=== PATIENT | female | born 1935 | race Asian ===

== ENCOUNTER 2022-11-26 21:39 | Inpatient (IN) | payer OTHER ==
[~2022-11-26] VITALS: Ht 160 cm; Wt 43.5 kg
[2022-11-26] MEDS ORDERED: cefTRIAXone 1,000 MG in DEXT 5% MINI-BAG PLUS 50 ML IV ONE (21:45)
[2022-11-26] MEDS ORDERED: cefTRIAXone 1,000 MG VIAL ONE (21:49)
[2022-11-26 22:10] VITALS: BP 168/83; PULSE 78; RESP 16; TEMP 97.5; O2SAT 95
[2022-11-26 22:15] VITALS: O2SAT 100
[2022-11-26 22:21] LABS: BASOPHILS % (AUTO) 0.6 % (0.0-2.0); EOSINOPHILS % (AUTO) 0.2 % (0.0-4.0); HEMATOCRIT 34.8 % (36-48); HEMOGLOBIN 11.6 g/dL (12.0-16.0); LYMPHOCYTES # (AUTO) 0.5 K/uL (2.5-16.5); LYMPHOCYTES % (AUTO) 10.9 % (20.5-51.1); MEAN CORPUSCULAR HEMOGLOBIN 34 pg (27-31); MEAN CORPUSCULAR HGB CONC 33 g/dL (33-37); MEAN CORPUSCULAR VOLUME 100.6 fL (80-94); MONOCYTES # (AUTO) 0.3 K/uL (0.8-1.0); MONOCYTES % (AUTO) 7.2 % (1.7-9.3); NEUTROPHILS # (AUTO) 3.7 K/uL (1.8-7.7); NEUTROPHILS % (AUTO) 81.1 % (42.2-75.2); PLATELET COUNT (AUTO) 169 K/uL (140-450); RED BLOOD CELL COUNT(AUTO) 3.46 MIL/uL (4.20-5.40); RED CELL DISTRIBUTION WIDTH 17.3 % (11.6-13.7); WHITE BLOOD COUNT (AUTO) 4.5 K/uL (4.8-10.8)
[2022-11-26 22:43] LABS: ALANINE AMINOTRANSFERASE 19 U/L (12-78); ALBUMIN 2.6 g/dL (3.4-5.0); ALKALINE PHOSPHATASE 122 U/L (50-136); ANION GAP 8.1 (8-16); ASPARTATE AMINOTRANSFERASE 69 U/L (15-37); CALCIUM 9.2 mg/dL (8.5-10.1); CARBON DIOXIDE 30.2 mmol/L (21-32); CHLORIDE 102 mmol/L (98-107); CREATININE 0.7 mg/dL (0.6-1.3); GLUCOSE 101 mg/dL (74-106); POTASSIUM 4.3 mmol/L (3.5-5.1); SODIUM SERUM 136 mmol/L (136-145); TOTAL BILIRUBIN 0.3 mg/dL (0.0-1.0); TOTAL PROTEIN, SERUM 6.9 g/dL (6.4-8.2); UREA NITROGEN, BLOOD 22 mg/dL (7-18)
[2022-11-26 22:44] LABS: APPEARANCE,URINE CLEAR (CLEAR); BILIRUBIN,URINE NEGATIVE (NEGATIVE); BLOOD, URINE NEGATIVE (NEGATIVE); COLOR,URINE YELLOW (YELLOW); LEUKOCYTE ESTERASE ,URINE NEGATIVE (NEGATIVE); NITRITE, URINE NEGATIVE (NEGATIVE); PROTEIN,URINE TRACE (NEGATIVE); UGLUCOSE NEGATIVE (NEGATIVE); UROBILINOGEN,URINE 0.2 EU/dL (0.2 - 1)
[2022-11-26 22:48] LABS: LACTIC ACID 0.8 mmol/L (0.4-2.0)
[2022-11-26] MEDS ORDERED: AZITHROMYCIN 500 MG in DEXTROSE 5% 250 ML IV ONE (22:55)
[2022-11-26] MEDS ORDERED: AZITHROMYCIN 500 MG INJ VIAL IV ONE (22:57)
[2022-11-27] VITALS (26 sets, daily range): BP systolic 72–135; BP diastolic 28–71; PULSE 70–98; RESP 15–20; TEMP 98–98.9; O2SAT 1–100
[2022-11-27 00:48] LABS: BLOOD GAS PH 7.327 (7.35-7.45)
[2022-11-27 00:49] LABS: BLOOD GAS PCO2 59.3 mmHg (35-45)
[2022-11-27 00:50] LABS: BLOOD GAS BASE EXCESS 3.2 mmol/L (-2.0-2.0); BLOOD GAS HCO3 30.4 mmol/L (22-26); BLOOD GAS PO2 24.2 mmHg (75-100)
[2022-11-27 00:51] LABS: BLOOD GAS O2 SAT% 38.8 % (92.0-98.5)
[2022-11-27 01:01] LABS: FLU A ANTIGEN negative (NEGATIVE); FLU B ANTIGEN NEGATIVE (NEGATIVE)
[2022-11-27] MEDS ORDERED: ONDANSETRON 4 MG/2 ML VIAL IM/IVP PRN (03:15)
[2022-11-27] MEDS ORDERED: POTASSIUM CHLORIDE 10 MEQ TABER PO PRN (03:15)
[2022-11-27] MEDS ORDERED: guaiFENesin DM 200/20 MG-10 ML 10 ML UDC PO PRN (03:15)
[2022-11-27] MEDS ORDERED: ZOLPIDEM 5 MG TAB PO PRN (03:15)
[2022-11-27] MEDS ORDERED: DOCUSATE SODIUM 100 MG GELCAP PO PRN (03:15)
[2022-11-27] MEDS ORDERED: HYDROcodone/APAP 7.5/325 MG 1 TAB PO PRN (03:15)
[2022-11-27] MEDS ORDERED: ACETAMINOPHEN 325 MG TAB PO PRN (03:15)
[2022-11-27 03:42] LABS: INR 1.33 (0.8-1.2); PROTHROMBIN TIME 13.8 secs (10.8-13.4)
[2022-11-27] MEDS: AZITHROMYCIN 500 MG in DEXTROSE 5% 250 ML IV SCH (08:50)
[2022-11-27] MEDS: FUROSEMIDE 40 MG/4 ML VIAL IVP SCH (08:51)
[2022-11-27] MEDS: PANTOPRAZOLE 40 MG TABEC PO SCH (08:51)
[2022-11-27] MEDS ORDERED: remdesivir COMMUNICATION ORDER 1 EA MISC MC PRN (11:05)
[2022-11-27] MEDS ORDERED: remdesivir CLINICAL MONITORING 1 EA MISC MC PRN (11:20)
[2022-11-27] MEDS ORDERED: REMDESIVIR. 200 MG in NACL 0.9% 100 ML IV SCH (12:00)
[2022-11-27] MEDS ORDERED: NACL 0.9% 500 ML IV SCH (12:50)
[2022-11-27] MEDS: HYDRAGUARD CREAM TP SCH (12:59)
[2022-11-27] MEDS: FOAM DRESSING TP SCH (12:59)
[2022-11-27] MEDS ORDERED: NOREPINEPHRINE 4 MG in DEXTROSE 5% 250 ML IV PRN (14:10)
[2022-11-27] MEDS ORDERED: NOREPINEPHRINE 4 MG/4 ML VIAL IV ONE (14:18)
[2022-11-28] VITALS (19 sets, daily range): BP systolic 91–120; BP diastolic 39–75; PULSE 83–124; RESP 14–22; TEMP 96.5–97.8; O2SAT 92–100
[2022-11-28] MEDS: HYDRAGUARD CREAM TP SCH ×3 (01:00→12:31)
[2022-11-28 05:04] LABS: HEMATOCRIT 39.1 % (36-48); MEAN CORPUSCULAR HEMOGLOBIN 33 pg (27-31); MEAN CORPUSCULAR HGB CONC 33 g/dL (33-37); MEAN CORPUSCULAR VOLUME 100.4 fL (80-94); PLATELET COUNT (AUTO) 177 K/uL (140-450); RED BLOOD CELL COUNT(AUTO) 3.89 MIL/uL (4.20-5.40); RED CELL DISTRIBUTION WIDTH 17.4 % (11.6-13.7); WHITE BLOOD COUNT (AUTO) 5.2 K/uL (4.8-10.8)
[2022-11-28 05:22] LABS: ALANINE AMINOTRANSFERASE 17 U/L (12-78); ALBUMIN 2.1 g/dL (3.4-5.0); ALKALINE PHOSPHATASE 223 U/L (50-136); ANION GAP 13.9 (8-16); ASPARTATE AMINOTRANSFERASE 64 U/L (15-37); CALCIUM 8.5 mg/dL (8.5-10.1); CARBON DIOXIDE 24.7 mmol/L (21-32); CHLORIDE 100 mmol/L (98-107); CREATININE 0.9 mg/dL (0.6-1.3); GLUCOSE 105 mg/dL (74-106); POTASSIUM 4.6 mmol/L (3.5-5.1); SODIUM SERUM 134 mmol/L (136-145); TOTAL BILIRUBIN 0.8 mg/dL (0.0-1.0); UREA NITROGEN, BLOOD 34 mg/dL (7-18)
[2022-11-28 05:23] LABS: ALBUMIN 2.2 g/dL (3.4-5.0); BILIRUBIN,DIRECT 0.4 mg/dL (0.0-0.3); TOTAL BILIRUBIN 0.7 mg/dL (0.0-1.0)
[2022-11-28 07:55] LABS: ANISOCYTOSIS 1+; BASOPHILS % (MANUAL) 0 % (0-2); BLASTS, MANUAL % 0 % (0-0); EOSINOPHILS % (MANUAL) 0 % (0-4); LYMPHOCYTES % (MANUAL) 2 % (20-46); METAMYELOCYTES % 0 % (0-0); MONOCYTES % (MANUAL) 0 % (5-12); MYELOCYTES % 0 % (0-0); OTHER CELLS,MANUAL % 0 (0-0); PLATELET ESTIMATE ADEQUATE; PROMYELOCYTES % 0 % (0-0); TEAR DROP CELLS 1+
[2022-11-28] MEDS ORDERED: DEXT 5% /NACL 0.9% 1,000 ML IV SCH (08:45)
[2022-11-28] MEDS: AZITHROMYCIN 500 MG in DEXTROSE 5% 250 ML IV SCH (08:52)
[2022-11-28] MEDS: FUROSEMIDE 40 MG/4 ML VIAL IVP SCH (08:53)
[2022-11-28] MEDS: PANTOPRAZOLE 40 MG TABEC PO SCH (08:54)
[2022-11-28] MEDS: REMDESIVIR. 100 MG in NACL 0.9% 100 ML IV SCH (12:10)
[2022-11-28] MEDS: FOAM DRESSING TP SCH (12:29)
[2022-11-28] MEDS: NOREPINEPHRINE 8 MG in DEXTROSE 5% 250 ML IV PRN (19:54)
[2022-11-29] VITALS (29 sets, daily range): BP systolic 95–134; BP diastolic 42–69; PULSE 87–119; RESP 12–21; TEMP 96.6–98.6; O2SAT 88–100
[2022-11-29 06:02] LABS: BILIRUBIN,DIRECT 0.4 mg/dL (0.0-0.3); TOTAL BILIRUBIN 0.7 mg/dL (0.0-1.0); TOTAL PROTEIN, SERUM 5.5 g/dL (6.4-8.2)
[2022-11-29 06:05] LABS: HEMATOCRIT 38.1 % (36-48); HEMOGLOBIN 12.8 g/dL (12.0-16.0); MEAN CORPUSCULAR HEMOGLOBIN 33 pg (27-31); MEAN CORPUSCULAR HGB CONC 34 g/dL (33-37); PLATELET COUNT (AUTO) 167 K/uL (140-450); RED BLOOD CELL COUNT(AUTO) 3.85 MIL/uL (4.20-5.40); RED CELL DISTRIBUTION WIDTH 18.3 % (11.6-13.7); WHITE BLOOD COUNT (AUTO) 10.3 K/uL (4.8-10.8)
[2022-11-29 06:27] LABS: ALANINE AMINOTRANSFERASE 18 U/L (12-78); ALKALINE PHOSPHATASE 193 U/L (50-136); ANION GAP 11.1 (8-16); ASPARTATE AMINOTRANSFERASE 79 U/L (15-37); CALCIUM 8.5 mg/dL (8.5-10.1); CHLORIDE 100 mmol/L (98-107); CREATININE 0.8 mg/dL (0.6-1.3); GLUCOSE 102 mg/dL (74-106); POTASSIUM 4.1 mmol/L (3.5-5.1); SODIUM SERUM 135 mmol/L (136-145); TOTAL BILIRUBIN 0.7 mg/dL (0.0-1.0); TOTAL PROTEIN, SERUM 5.5 g/dL (6.4-8.2); UREA NITROGEN, BLOOD 43 mg/dL (7-18)
[2022-11-29 07:59] LABS: ANISOCYTOSIS 1+; LYMPHOCYTES % (MANUAL) 2 % (20-46); MONOCYTES % (MANUAL) 1 % (5-12); OVALOCYTES 1+; PLATELET ESTIMATE ADEQUATE
[2022-11-29] MEDS: PANTOPRAZOLE 40 MG TABEC PO SCH (09:00)
[2022-11-29] MEDS: FUROSEMIDE 40 MG/4 ML VIAL IVP SCH (09:39)
[2022-11-29] MEDS: AZITHROMYCIN 500 MG in DEXTROSE 5% 250 ML IV SCH (09:40)
[2022-11-29] MEDS: NOREPINEPHRINE 8 MG in DEXTROSE 5% 250 ML IV PRN (10:22)
[2022-11-29] MEDS: REMDESIVIR. 100 MG in NACL 0.9% 100 ML IV SCH (11:34)
[2022-11-29] MEDS: FOAM DRESSING TP SCH (12:47)
[2022-11-29] MEDS: HYDRAGUARD CREAM TP SCH ×2 (12:49→13:00)
[2022-11-29] MEDS: ALBUTEROL SULFATE/IPRATROPIU 3 ML SOL IH PRN (16:37)
[2022-11-30] VITALS (30 sets, daily range): BP systolic 68–142; BP diastolic 37–72; PULSE 80–146; RESP 13–20; TEMP 96–98.1; O2SAT 77–100
[2022-11-30] MEDS: NOREPINEPHRINE 8 MG in DEXTROSE 5% 250 ML IV PRN ×2 (01:12→22:31)
[2022-11-30 05:07] LABS: BASOPHILS % (AUTO) 0.3 % (0.0-2.0); HEMATOCRIT 37.9 % (36-48); HEMOGLOBIN 12.8 g/dL (12.0-16.0); LYMPHOCYTES # (AUTO) 0.3 K/uL (2.5-16.5); LYMPHOCYTES % (AUTO) 3.1 % (20.5-51.1); MEAN CORPUSCULAR HEMOGLOBIN 34 pg (27-31); MEAN CORPUSCULAR HGB CONC 34 g/dL (33-37); MEAN CORPUSCULAR VOLUME 99.3 fL (80-94); MONOCYTES # (AUTO) 0.3 K/uL (0.8-1.0); MONOCYTES % (AUTO) 2.8 % (1.7-9.3); NEUTROPHILS # (AUTO) 9.4 K/uL (1.8-7.7); NEUTROPHILS % (AUTO) 93.8 % (42.2-75.2); PLATELET COUNT (AUTO) 158 K/uL (140-450); RED BLOOD CELL COUNT(AUTO) 3.81 MIL/uL (4.20-5.40); WHITE BLOOD COUNT (AUTO) 10.1 K/uL (4.8-10.8)
[2022-11-30 05:42] LABS: ALANINE AMINOTRANSFERASE 20 U/L (12-78); ALKALINE PHOSPHATASE 193 U/L (50-136); ANION GAP 10.4 (8-16); ASPARTATE AMINOTRANSFERASE 81 U/L (15-37); CALCIUM 8.7 mg/dL (8.5-10.1); CARBON DIOXIDE 31.4 mmol/L (21-32); CHLORIDE 100 mmol/L (98-107); CREATININE 0.8 mg/dL (0.6-1.3); GLUCOSE 123 mg/dL (74-106); POTASSIUM 3.8 mmol/L (3.5-5.1); SODIUM SERUM 138 mmol/L (136-145); TOTAL BILIRUBIN 0.6 mg/dL (0.0-1.0); TOTAL PROTEIN, SERUM 5.6 g/dL (6.4-8.2); UREA NITROGEN, BLOOD 47 mg/dL (7-18)
[2022-11-30] MEDS: AZITHROMYCIN 500 MG in DEXTROSE 5% 250 ML IV SCH (08:32)
[2022-11-30] MEDS: DEXAMETHASONE 4 MG/ML VIAL IVP SCH (08:33)
[2022-11-30] MEDS: FUROSEMIDE 40 MG/4 ML VIAL IVP SCH (08:34)
[2022-11-30] MEDS: PANTOPRAZOLE 40 MG INJ VIAL IVP SCH (08:34)
[2022-11-30 08:50] LABS: C-REACTIVE PROTEIN QUANT 50.1 mg/dL (0.0-0.9)
[2022-11-30] MEDS ORDERED: ENOXAPARIN 40 MG/0.4 ML SYR SUBQ SCH (09:00)
[2022-11-30] MEDS: REMDESIVIR. 100 MG in NACL 0.9% 100 ML IV SCH (11:52)
[2022-11-30] MEDS: HYDRAGUARD CREAM TP SCH (13:00)
[2022-11-30] MEDS: FOAM DRESSING TP SCH (13:00)
[2022-11-30] MEDS ORDERED: PPN PER PHARMACY MC PRN (15:10)
[2022-11-30] MEDS ORDERED: DIGOXIN 0.25 MG/ML AMP IV ONE ×2 (16:45→22:30)
[2022-11-30] MEDS: DEXT 5% /NACL 0.9% 1,000 ML IV SCH (17:55)
[2022-11-30] MEDS: ALBUTEROL SULFATE/IPRATROPIU 3 ML SOL IH PRN (19:20)
[2022-12-01] VITALS (41 sets, daily range): BP systolic 80–164; BP diastolic 31–84; PULSE 46–97; RESP 12–19; TEMP 96.3–98; O2SAT 89–100
[2022-12-01] MEDS: HYDRAGUARD CREAM TP SCH ×2 (00:29→13:00)
[2022-12-01] MEDS ORDERED: DIGOXIN 0.25 MG/ML AMP IV ONE ×2 (04:30→18:00)
[2022-12-01 05:38] LABS: BASOPHILS % (AUTO) 0.1 % (0.0-2.0); EOSINOPHILS % (AUTO) 0.1 % (0.0-4.0); HEMATOCRIT 37.9 % (36-48); HEMOGLOBIN 12.7 g/dL (12.0-16.0); LYMPHOCYTES # (AUTO) 0.3 K/uL (2.5-16.5); MEAN CORPUSCULAR HEMOGLOBIN 33 pg (27-31); MEAN CORPUSCULAR HGB CONC 34 g/dL (33-37); MONOCYTES # (AUTO) 0.3 K/uL (0.8-1.0); NEUTROPHILS # (AUTO) 7.9 K/uL (1.8-7.7); NEUTROPHILS % (AUTO) 93.8 % (42.2-75.2); PLATELET COUNT (AUTO) 162 K/uL (140-450); RED BLOOD CELL COUNT(AUTO) 3.83 MIL/uL (4.20-5.40); RED CELL DISTRIBUTION WIDTH 17.5 % (11.6-13.7); WHITE BLOOD COUNT (AUTO) 8.4 K/uL (4.8-10.8)
[2022-12-01 06:03] LABS: ALANINE AMINOTRANSFERASE 26 U/L (12-78); ALBUMIN 2.1 g/dL (3.4-5.0); ALKALINE PHOSPHATASE 201 U/L (50-136); ASPARTATE AMINOTRANSFERASE 96 U/L (15-37); BILIRUBIN,DIRECT 0.3 mg/dL (0.0-0.3); CALCIUM 8.6 mg/dL (8.5-10.1); CARBON DIOXIDE 32.6 mmol/L (21-32); CHLORIDE 98 mmol/L (98-107); GLUCOSE 239 mg/dL (74-106); POTASSIUM 3.6 mmol/L (3.5-5.1); SODIUM SERUM 136 mmol/L (136-145); TOTAL BILIRUBIN 0.6 mg/dL (0.0-1.0); TOTAL PROTEIN, SERUM 5.7 g/dL (6.4-8.2); UREA NITROGEN, BLOOD 53 mg/dL (7-18)
[2022-12-01 07:33] LABS: MAGNESIUM 1.5 mg/dL (1.8-2.4); PHOSPHORUS 3.5 mg/dL (2.5-4.9)
[2022-12-01] MEDS: AZITHROMYCIN 500 MG in DEXTROSE 5% 250 ML IV SCH (08:08)
[2022-12-01] MEDS: PANTOPRAZOLE 40 MG INJ VIAL IVP SCH (08:09)
[2022-12-01] MEDS: DEXAMETHASONE 4 MG/ML VIAL IVP SCH (08:09)
[2022-12-01] MEDS ORDERED: MAG SULF 2000 MG/WATER PREMIX 50 ML IV SCH (08:40)
[2022-12-01] MEDS ORDERED: DEXMEDETOMIDINE HCL 400 MCG in NACL 0.9% 96 ML IV PRN ×2 (09:45→10:05)
[2022-12-01 11:04] LABS: BLOOD GAS PCO2 45.4 mmHg (35-45); BLOOD GAS PH 7.432 (7.35-7.45)
[2022-12-01 11:05] LABS: BLOOD GAS BASE EXCESS 4.7 mmol/L (-2.0-2.0); BLOOD GAS HCO3 29.6 mmol/L (22-26)
[2022-12-01 11:06] LABS: BLOOD GAS O2 SAT% 99.1 % (92.0-98.5)
[2022-12-01] MEDS: DEXT 5% /NACL 0.9% 1,000 ML IV SCH (11:24)
[2022-12-01] MEDS: REMDESIVIR. 100 MG in NACL 0.9% 100 ML IV SCH (11:50)
[2022-12-01] MEDS ORDERED: TPN PER PHARMACY MC PRN (12:05)
[2022-12-01] MEDS: FOAM DRESSING TP SCH (13:00)
[2022-12-01] MEDS: DEXMEDETOMIDINE HCL 400 MCG in NACL 0.9% 96 ML IV PRN (13:19)
[2022-12-01] MEDS: BLOOD GLUCOSE MONITORING 1 DEV DEV MC SCH (18:43)
[2022-12-01] MEDS ORDERED: DEXTROSE IV SCH ×3 (20:00)
[2022-12-01] MEDS ORDERED: MULTIVITAMIN IV SCH ×3 (20:00)
[2022-12-01] MEDS ORDERED: AMINO ACIDS 8.5% IV SCH ×3 (20:00)
[2022-12-02] VITALS (29 sets, daily range): BP systolic 103–154; BP diastolic 44–79; PULSE 47–92; RESP 12–21; TEMP 96.3–97.1; O2SAT 85–100
[2022-12-02] MEDS: BLOOD GLUCOSE MONITORING 1 DEV DEV MC SCH ×4 (00:33→18:40)
[2022-12-02] MEDS: HYDRAGUARD CREAM TP SCH ×2 (00:34→13:41)
[2022-12-02 05:59] LABS: BASOPHILS % (AUTO) 0.1 % (0.0-2.0); EOSINOPHILS % (AUTO) 0.1 % (0.0-4.0); HEMATOCRIT 35.3 % (36-48); HEMOGLOBIN 11.8 g/dL (12.0-16.0); LYMPHOCYTES # (AUTO) 0.2 K/uL (2.5-16.5); LYMPHOCYTES % (AUTO) 3.6 % (20.5-51.1); MEAN CORPUSCULAR HEMOGLOBIN 33 pg (27-31); MEAN CORPUSCULAR HGB CONC 33 g/dL (33-37); MONOCYTES # (AUTO) 0.3 K/uL (0.8-1.0); MONOCYTES % (AUTO) 4.6 % (1.7-9.3); NEUTROPHILS # (AUTO) 5.8 K/uL (1.8-7.7); NEUTROPHILS % (AUTO) 91.6 % (42.2-75.2); PLATELET COUNT (AUTO) 129 K/uL (140-450); RED BLOOD CELL COUNT(AUTO) 3.53 MIL/uL (4.20-5.40); RED CELL DISTRIBUTION WIDTH 17.6 % (11.6-13.7); WHITE BLOOD COUNT (AUTO) 6.4 K/uL (4.8-10.8)
[2022-12-02 06:23] LABS: ALANINE AMINOTRANSFERASE 29 U/L (12-78); ALBUMIN 1.7 g/dL (3.4-5.0); ALKALINE PHOSPHATASE 166 U/L (50-136); ANION GAP 4.7 (8-16); ASPARTATE AMINOTRANSFERASE 83 U/L (15-37); CALCIUM 8.5 mg/dL (8.5-10.1); CHLORIDE 102 mmol/L (98-107); CREATININE 0.7 mg/dL (0.6-1.3); GLUCOSE 200 mg/dL (74-106); POTASSIUM 3.7 mmol/L (3.5-5.1); SODIUM SERUM 137 mmol/L (136-145); TOTAL BILIRUBIN 0.3 mg/dL (0.0-1.0); TOTAL PROTEIN, SERUM 5.1 g/dL (6.4-8.2); UREA NITROGEN, BLOOD 47 mg/dL (7-18)
[2022-12-02 06:25] LABS: CHOL/HDL RATIO 4.7 (1-4.5)
[2022-12-02] MEDS: PANTOPRAZOLE 40 MG INJ VIAL IVP SCH ×2 (07:58→20:18)
[2022-12-02] MEDS: DEXAMETHASONE 4 MG/ML VIAL IVP SCH (07:58)
[2022-12-02] MEDS: INSULIN LISPRO SLIDING SCALE 100 UNITS/ML VIAL SUBQ PRN (12:01)
[2022-12-02] MEDS: FOAM DRESSING TP SCH (13:41)
[2022-12-02] MEDS: FUROSEMIDE 40 MG/4 ML VIAL IVP SCH (14:49)
[2022-12-02] MEDS: NOREPINEPHRINE 8 MG in DEXTROSE 5% 250 ML IV PRN (15:32)
[2022-12-02] MEDS ORDERED: MULTIVITAMIN-12 10 ML in DEXTROSE 50% 545 ML, AMINO ACIDS 8.5% 545 ML, FAT EMULSION 20%... IV SCH ×4 (20:00)
[2022-12-02] MEDS: CEFEPIME 1,000 MG in DEXTROSE 5% 50 ML IV SCH (20:18)
[2022-12-03] VITALS (32 sets, daily range): BP systolic 92–139; BP diastolic 36–75; PULSE 65–104; RESP 13–21; TEMP 96.5–98.6; O2SAT 82–100
[2022-12-03] MEDS: BLOOD GLUCOSE MONITORING 1 DEV DEV MC SCH ×4 (00:52→18:17)
[2022-12-03] MEDS: HYDRAGUARD CREAM TP SCH ×2 (00:58→13:49)
[2022-12-03 05:29] LABS: BASOPHILS % (AUTO) 0.1 % (0.0-2.0); HEMATOCRIT 35.2 % (36-48); HEMOGLOBIN 11.8 g/dL (12.0-16.0); LYMPHOCYTES # (AUTO) 0.2 K/uL (2.5-16.5); LYMPHOCYTES % (AUTO) 2.6 % (20.5-51.1); MEAN CORPUSCULAR HEMOGLOBIN 33 pg (27-31); MEAN CORPUSCULAR HGB CONC 34 g/dL (33-37); MEAN CORPUSCULAR VOLUME 99.1 fL (80-94); MONOCYTES # (AUTO) 0.2 K/uL (0.8-1.0); MONOCYTES % (AUTO) 2.7 % (1.7-9.3); NEUTROPHILS # (AUTO) 7.7 K/uL (1.8-7.7); NEUTROPHILS % (AUTO) 94.6 % (42.2-75.2); PLATELET COUNT (AUTO) 109 K/uL (140-450); RED BLOOD CELL COUNT(AUTO) 3.55 MIL/uL (4.20-5.40); RED CELL DISTRIBUTION WIDTH 17.8 % (11.6-13.7); WHITE BLOOD COUNT (AUTO) 8.1 K/uL (4.8-10.8)
[2022-12-03 05:45] LABS: ALANINE AMINOTRANSFERASE 28 U/L (12-78); ALBUMIN 1.7 g/dL (3.4-5.0); ALKALINE PHOSPHATASE 150 U/L (50-136); ASPARTATE AMINOTRANSFERASE 82 U/L (15-37); CALCIUM 8.1 mg/dL (8.5-10.1); CARBON DIOXIDE 34.5 mmol/L (21-32); CHLORIDE 99 mmol/L (98-107); CREATININE 0.6 mg/dL (0.6-1.3); POTASSIUM 4.5 mmol/L (3.5-5.1); SODIUM SERUM 133 mmol/L (136-145); TOTAL BILIRUBIN 0.3 mg/dL (0.0-1.0); TOTAL PROTEIN, SERUM 4.9 g/dL (6.4-8.2); UREA NITROGEN, BLOOD 46 mg/dL (7-18)
[2022-12-03 05:51] LABS: GLUCOSE 454 mg/dL (74-106)
[2022-12-03 05:54] LABS: MAGNESIUM 2.1 mg/dL (1.8-2.4); PHOSPHORUS 4.1 mg/dL (2.5-4.9)
[2022-12-03] MEDS: CEFEPIME 1,000 MG in DEXTROSE 5% 50 ML IV SCH ×2 (09:22→20:37)
[2022-12-03] MEDS: PANTOPRAZOLE 40 MG INJ VIAL IVP SCH ×2 (09:22→20:37)
[2022-12-03] MEDS: FUROSEMIDE 40 MG/4 ML VIAL IVP SCH (09:23)
[2022-12-03] MEDS: FOAM DRESSING TP SCH (13:48)
[2022-12-03] MEDS ORDERED: DEXTROSE IV SCH ×4 (20:00)
[2022-12-03] MEDS ORDERED: MULTIVITAMIN IV SCH ×4 (20:00)
[2022-12-03] MEDS ORDERED: AMINO ACIDS IV SCH ×4 (20:00)
[2022-12-03] MEDS ORDERED: [UNRECOGNIZED DRUG - OTHER] IV SCH ×4 (20:00)
[2022-12-04] VITALS (30 sets, daily range): BP systolic 90–136; BP diastolic 38–84; PULSE 66–117; RESP 13–28; TEMP 97.8–98.8; O2SAT 82–100
[2022-12-04] MEDS: BLOOD GLUCOSE MONITORING 1 DEV DEV MC SCH ×4 (00:33→18:47)
[2022-12-04] MEDS: HYDRAGUARD CREAM TP SCH ×2 (00:33→13:00)
[2022-12-04 05:30] LABS: HEMATOCRIT 32.7 % (36-48); LYMPHOCYTES # (AUTO) 0.2 K/uL (2.5-16.5); LYMPHOCYTES % (AUTO) 2.3 % (20.5-51.1); MEAN CORPUSCULAR HEMOGLOBIN 33 pg (27-31); MEAN CORPUSCULAR HGB CONC 34 g/dL (33-37); MEAN CORPUSCULAR VOLUME 99.2 fL (80-94); MONOCYTES # (AUTO) 0.3 K/uL (0.8-1.0); MONOCYTES % (AUTO) 3.6 % (1.7-9.3); NEUTROPHILS # (AUTO) 8.7 K/uL (1.8-7.7); NEUTROPHILS % (AUTO) 94.1 % (42.2-75.2); PLATELET COUNT (AUTO) 86 K/uL (140-450); RED BLOOD CELL COUNT(AUTO) 3.29 MIL/uL (4.20-5.40); RED CELL DISTRIBUTION WIDTH 17.4 % (11.6-13.7); WHITE BLOOD COUNT (AUTO) 9.3 K/uL (4.8-10.8)
[2022-12-04 06:04] LABS: PHOSPHORUS 2.4 mg/dL (2.5-4.9)
[2022-12-04 06:32] LABS: ALANINE AMINOTRANSFERASE 27 U/L (12-78); ALBUMIN 1.7 g/dL (3.4-5.0); ALKALINE PHOSPHATASE 140 U/L (50-136); ANION GAP 5.3 (8-16); ASPARTATE AMINOTRANSFERASE 72 U/L (15-37); CALCIUM 8.6 mg/dL (8.5-10.1); CARBON DIOXIDE 36.2 mmol/L (21-32); CHLORIDE 102 mmol/L (98-107); CREATININE 0.7 mg/dL (0.6-1.3); GLUCOSE 163 mg/dL (74-106); POTASSIUM 3.5 mmol/L (3.5-5.1); SODIUM SERUM 140 mmol/L (136-145); TOTAL BILIRUBIN 0.4 mg/dL (0.0-1.0); UREA NITROGEN, BLOOD 58 mg/dL (7-18)
[2022-12-04] MEDS: FUROSEMIDE 40 MG/4 ML VIAL IVP SCH (09:14)
[2022-12-04] MEDS: CEFEPIME 1,000 MG in DEXTROSE 5% 50 ML IV SCH ×2 (09:14→20:44)
[2022-12-04] MEDS: PANTOPRAZOLE 40 MG INJ VIAL IVP SCH ×2 (09:14→20:44)
[2022-12-04] MEDS: DEXMEDETOMIDINE HCL 400 MCG in NACL 0.9% 96 ML IV PRN (10:04)
[2022-12-04] MEDS: INSULIN LISPRO SLIDING SCALE 100 UNITS/ML VIAL SUBQ PRN (11:45)
[2022-12-04] MEDS: FOAM DRESSING TP SCH (13:00)
[2022-12-04] MEDS: DEXTROSE IV SCH ×4 (20:46)
[2022-12-04] MEDS: [UNRECOGNIZED DRUG - OTHER] IV SCH ×4 (20:46)
[2022-12-04] MEDS: AMINO ACIDS IV SCH ×4 (20:46)
[2022-12-04] MEDS: MULTIVITAMIN IV SCH ×4 (20:46)
[2022-12-05] VITALS (31 sets, daily range): BP systolic 90–131; BP diastolic 35–81; PULSE 80–129; RESP 14–25; TEMP 97.1–98.8; O2SAT 90–100
[2022-12-05] MEDS: BLOOD GLUCOSE MONITORING 1 DEV DEV MC SCH ×4 (00:16→17:32)
[2022-12-05] MEDS: HYDRAGUARD CREAM TP SCH ×2 (01:50→13:49)
[2022-12-05 05:35] LABS: BASOPHILS % (AUTO) 0.1 % (0.0-2.0); HEMATOCRIT 28.3 % (36-48); HEMOGLOBIN 9.5 g/dL (12.0-16.0); LYMPHOCYTES # (AUTO) 0.3 K/uL (2.5-16.5); LYMPHOCYTES % (AUTO) 4.1 % (20.5-51.1); MEAN CORPUSCULAR HEMOGLOBIN 33 pg (27-31); MEAN CORPUSCULAR HGB CONC 34 g/dL (33-37); MEAN CORPUSCULAR VOLUME 99.2 fL (80-94); MONOCYTES # (AUTO) 0.3 K/uL (0.8-1.0); MONOCYTES % (AUTO) 4.2 % (1.7-9.3); NEUTROPHILS # (AUTO) 6.8 K/uL (1.8-7.7); PLATELET COUNT (AUTO) 78 K/uL (140-450); RED BLOOD CELL COUNT(AUTO) 2.86 MIL/uL (4.20-5.40); RED CELL DISTRIBUTION WIDTH 17.5 % (11.6-13.7); WHITE BLOOD COUNT (AUTO) 7.4 K/uL (4.8-10.8)
[2022-12-05 05:45] LABS: PHOSPHORUS 1.9 mg/dL (2.5-4.9)
[2022-12-05 05:48] LABS: ALANINE AMINOTRANSFERASE 26 U/L (12-78); ALBUMIN 1.6 g/dL (3.4-5.0); ALKALINE PHOSPHATASE 127 U/L (50-136); ANION GAP 3.8 (8-16); ASPARTATE AMINOTRANSFERASE 66 U/L (15-37); CALCIUM 8.3 mg/dL (8.5-10.1); CARBON DIOXIDE 36.4 mmol/L (21-32); CHLORIDE 107 mmol/L (98-107); CREATININE 0.7 mg/dL (0.6-1.3); GLUCOSE 208 mg/dL (74-106); POTASSIUM 3.2 mmol/L (3.5-5.1); SODIUM SERUM 144 mmol/L (136-145); TOTAL BILIRUBIN 0.5 mg/dL (0.0-1.0); TOTAL PROTEIN, SERUM 4.8 g/dL (6.4-8.2); UREA NITROGEN, BLOOD 59 mg/dL (7-18)
[2022-12-05 06:31] LABS: NEUTROPHILS % (AUTO) 91.6 % (42.2-75.2)
[2022-12-05 07:24] LABS: BLOOD GAS PCO2 45.2 mmHg (35-45); BLOOD GAS PH 7.474 (7.35-7.45)
[2022-12-05 07:25] LABS: BLOOD GAS O2 SAT% 95.2 % (92.0-98.5)
[2022-12-05 07:26] LABS: BLOOD GAS HCO3 32.5 mmol/L (22-26)
[2022-12-05] MEDS ORDERED: KCL 20 MEQ IN 100 mL PREMIX 200 ML IV SCH (08:01)
[2022-12-05] MEDS: FUROSEMIDE 20 MG/2 ML VIAL IVP SCH ×2 (08:33→15:03)
[2022-12-05] MEDS: PANTOPRAZOLE 40 MG INJ VIAL IVP SCH ×2 (08:33→20:05)
[2022-12-05] MEDS: FUROSEMIDE 40 MG/4 ML VIAL IVP SCH ×2 (08:34→09:00)
[2022-12-05] MEDS: CEFEPIME 1,000 MG in DEXTROSE 5% 50 ML IV SCH ×2 (08:34→21:04)
[2022-12-05] MEDS ORDERED: POTASSIUM PHOSPHATE 15 MM in NACL 0.9% 250 ML IV SCH (09:00)
[2022-12-05 11:02] LABS: INR 1.29 (0.8-1.2); PARTIAL THROMBOPLASTIN TIME 30.2 secs (22-35.6); PROTHROMBIN TIME 13.3 secs (10.8-13.4)
[2022-12-05] MEDS: FOAM DRESSING TP SCH (13:49)
[2022-12-05] MEDS: INSULIN LISPRO SLIDING SCALE 100 UNITS/ML VIAL SUBQ PRN (17:33)
[2022-12-05] MEDS: DEXMEDETOMIDINE HCL 400 MCG in NACL 0.9% 96 ML IV PRN (18:12)
[2022-12-05] MEDS: [UNRECOGNIZED DRUG - OTHER] IV SCH ×4 (20:05)
[2022-12-05] MEDS: AMINO ACIDS IV SCH ×4 (20:05)
[2022-12-05] MEDS: MULTIVITAMIN IV SCH ×4 (20:05)
[2022-12-05] MEDS: DEXTROSE IV SCH ×4 (20:05)
[2022-12-06] VITALS (29 sets, daily range): BP systolic 98–164; BP diastolic 52–111; PULSE 72–111; RESP 14–27; TEMP 96.2–98.4; O2SAT 94–100
[2022-12-06] MEDS ORDERED: DEXTROSE 50% 50 ML SYR IVP ONE (00:28)
[2022-12-06] MEDS: BLOOD GLUCOSE MONITORING 1 DEV DEV MC SCH ×4 (00:36→18:03)
[2022-12-06] MEDS: HYDRAGUARD CREAM TP SCH ×2 (00:36→13:50)
[2022-12-06] MEDS: DEXTROSE 50% 50 ML SYR IVP PRN ×2 (00:45→21:21)
[2022-12-06 05:15] LABS: BASOPHILS % (AUTO) 0.1 % (0.0-2.0); HEMATOCRIT 33.3 % (36-48); HEMOGLOBIN 11.4 g/dL (12.0-16.0); LYMPHOCYTES # (AUTO) 0.3 K/uL (2.5-16.5); LYMPHOCYTES % (AUTO) 4.7 % (20.5-51.1); MEAN CORPUSCULAR HEMOGLOBIN 32 pg (27-31); MEAN CORPUSCULAR HGB CONC 34 g/dL (33-37); MEAN CORPUSCULAR VOLUME 93.5 fL (80-94); MONOCYTES # (AUTO) 0.3 K/uL (0.8-1.0); MONOCYTES % (AUTO) 5.2 % (1.7-9.3); NEUTROPHILS # (AUTO) 5.1 K/uL (1.8-7.7); PLATELET COUNT (AUTO) 106 K/uL (140-450); RED BLOOD CELL COUNT(AUTO) 3.56 MIL/uL (4.20-5.40); RED CELL DISTRIBUTION WIDTH 19.2 % (11.6-13.7); WHITE BLOOD COUNT (AUTO) 5.7 K/uL (4.8-10.8)
[2022-12-06 05:23] LABS: MAGNESIUM 1.8 mg/dL (1.8-2.4); PHOSPHORUS 2.9 mg/dL (2.5-4.9)
[2022-12-06 05:26] LABS: ALANINE AMINOTRANSFERASE 26 U/L (12-78); ALBUMIN 1.6 g/dL (3.4-5.0); ALKALINE PHOSPHATASE 119 U/L (50-136); ANION GAP 5.3 (8-16); ASPARTATE AMINOTRANSFERASE 67 U/L (15-37); CALCIUM 8.5 mg/dL (8.5-10.1); CARBON DIOXIDE 37.5 mmol/L (21-32); CHLORIDE 108 mmol/L (98-107); CREATININE 0.6 mg/dL (0.6-1.3); GLUCOSE 132 mg/dL (74-106); SODIUM SERUM 148 mmol/L (136-145); TOTAL BILIRUBIN 0.6 mg/dL (0.0-1.0); TOTAL PROTEIN, SERUM 5.1 g/dL (6.4-8.2); UREA NITROGEN, BLOOD 55 mg/dL (7-18)
[2022-12-06 05:29] LABS: POTASSIUM 2.8 mmol/L (3.5-5.1)
[2022-12-06] MEDS ORDERED: KCL IV ONE (05:40)
[2022-12-06] MEDS: CEFEPIME 1,000 MG in DEXTROSE 5% 50 ML IV SCH ×2 (08:23→20:24)
[2022-12-06] MEDS: PANTOPRAZOLE 40 MG INJ VIAL IVP SCH ×2 (08:24→20:24)
[2022-12-06] MEDS: FUROSEMIDE 20 MG/2 ML VIAL IVP SCH (08:24)
[2022-12-06] MEDS: FOAM DRESSING TP SCH (13:49)
[2022-12-06] MEDS: AMINO ACIDS IV SCH ×4 (20:36)
[2022-12-06] MEDS: MULTIVITAMIN IV SCH ×4 (20:36)
[2022-12-06] MEDS: DEXTROSE IV SCH ×4 (20:36)
[2022-12-06] MEDS: [UNRECOGNIZED DRUG - OTHER] IV SCH ×4 (20:36)
[2022-12-07] VITALS (31 sets, daily range): BP systolic 125–169; BP diastolic 66–102; PULSE 86–125; RESP 16–36; TEMP 96–98.9; O2SAT 94–99
[2022-12-07] MEDS: BLOOD GLUCOSE MONITORING 1 DEV DEV MC SCH ×4 (00:10→18:13)
[2022-12-07] MEDS: HYDRAGUARD CREAM TP SCH ×2 (00:11→13:00)
[2022-12-07 05:30] LABS: EOSINOPHILS % (AUTO) 0.1 % (0.0-4.0); HEMOGLOBIN 9.5 g/dL (12.0-16.0); LYMPHOCYTES # (AUTO) 0.3 K/uL (2.5-16.5); LYMPHOCYTES % (AUTO) 4.9 % (20.5-51.1); MEAN CORPUSCULAR HEMOGLOBIN 32 pg (27-31); MEAN CORPUSCULAR HGB CONC 34 g/dL (33-37); MEAN CORPUSCULAR VOLUME 94.6 fL (80-94); MONOCYTES # (AUTO) 0.4 K/uL (0.8-1.0); MONOCYTES % (AUTO) 6.7 % (1.7-9.3); NEUTROPHILS # (AUTO) 5.6 K/uL (1.8-7.7); NEUTROPHILS % (AUTO) 88.3 % (42.2-75.2); PLATELET COUNT (AUTO) 108 K/uL (140-450); RED BLOOD CELL COUNT(AUTO) 2.95 MIL/uL (4.20-5.40); RED CELL DISTRIBUTION WIDTH 18.7 % (11.6-13.7); WHITE BLOOD COUNT (AUTO) 6.3 K/uL (4.8-10.8)
[2022-12-07 05:59] LABS: ALANINE AMINOTRANSFERASE 37 U/L (12-78); ALBUMIN 1.7 g/dL (3.4-5.0); ALKALINE PHOSPHATASE 148 U/L (50-136); ANION GAP 3.9 (8-16); ASPARTATE AMINOTRANSFERASE 79 U/L (15-37); CALCIUM 8.5 mg/dL (8.5-10.1); CARBON DIOXIDE 37.9 mmol/L (21-32); CHLORIDE 110 mmol/L (98-107); CREATININE 0.5 mg/dL (0.6-1.3); GLUCOSE 109 mg/dL (74-106); MAGNESIUM 1.9 mg/dL (1.8-2.4); PHOSPHORUS 1.9 mg/dL (2.5-4.9); POTASSIUM 3.8 mmol/L (3.5-5.1); SODIUM SERUM 148 mmol/L (136-145); TOTAL BILIRUBIN 0.7 mg/dL (0.0-1.0); TOTAL PROTEIN, SERUM 5.4 g/dL (6.4-8.2); UREA NITROGEN, BLOOD 42 mg/dL (7-18)
[2022-12-07] MEDS: FUROSEMIDE 20 MG/2 ML VIAL IVP SCH (09:54)
[2022-12-07] MEDS: PANTOPRAZOLE 40 MG INJ VIAL IVP SCH ×2 (09:54→20:18)
[2022-12-07] MEDS: FOAM DRESSING TP SCH (13:00)
[2022-12-07] MEDS: DEXTROSE IV SCH ×4 (20:19)
[2022-12-07] MEDS: [UNRECOGNIZED DRUG - OTHER] IV SCH ×4 (20:19)
[2022-12-07] MEDS: MULTIVITAMIN IV SCH ×4 (20:19)
[2022-12-07] MEDS: AMINO ACIDS IV SCH ×4 (20:19)
[2022-12-08] VITALS (29 sets, daily range): BP systolic 108–165; BP diastolic 53–87; PULSE 72–113; RESP 17–34; TEMP 97.2–98.3; O2SAT 95–99
[2022-12-08] MEDS: BLOOD GLUCOSE MONITORING 1 DEV DEV MC SCH ×4 (00:45→17:48)
[2022-12-08] MEDS: HYDRAGUARD CREAM TP SCH ×2 (01:00→13:06)
[2022-12-08 05:38] LABS: BASOPHILS % (AUTO) 0.1 % (0.0-2.0); EOSINOPHILS % (AUTO) 0.1 % (0.0-4.0); HEMATOCRIT 27.8 % (36-48); HEMOGLOBIN 9.2 g/dL (12.0-16.0); LYMPHOCYTES # (AUTO) 0.3 K/uL (2.5-16.5); LYMPHOCYTES % (AUTO) 5.4 % (20.5-51.1); MEAN CORPUSCULAR HEMOGLOBIN 32 pg (27-31); MEAN CORPUSCULAR HGB CONC 33 g/dL (33-37); MEAN CORPUSCULAR VOLUME 96.1 fL (80-94); MONOCYTES # (AUTO) 0.4 K/uL (0.8-1.0); MONOCYTES % (AUTO) 6.2 % (1.7-9.3); NEUTROPHILS % (AUTO) 88.2 % (42.2-75.2); PLATELET COUNT (AUTO) 108 K/uL (140-450); RED CELL DISTRIBUTION WIDTH 18.9 % (11.6-13.7); WHITE BLOOD COUNT (AUTO) 5.7 K/uL (4.8-10.8)
[2022-12-08 06:18] LABS: PHOSPHORUS 2.5 mg/dL (2.5-4.9)
[2022-12-08 06:33] LABS: CALCIUM 8.6 mg/dL (8.5-10.1); CARBON DIOXIDE 38.9 mmol/L (21-32); CHLORIDE 110 mmol/L (98-107); CREATININE 0.4 mg/dL (0.6-1.3); GLUCOSE 137 mg/dL (74-106); POTASSIUM 3.9 mmol/L (3.5-5.1); SODIUM SERUM 148 mmol/L (136-145); UREA NITROGEN, BLOOD 39 mg/dL (7-18)
[2022-12-08] MEDS: FUROSEMIDE 20 MG/2 ML VIAL IVP SCH (08:15)
[2022-12-08] MEDS: PANTOPRAZOLE 40 MG INJ VIAL IVP SCH ×2 (08:15→20:03)
[2022-12-08] MEDS: DEXMEDETOMIDINE HCL 400 MCG in NACL 0.9% 96 ML IV PRN (09:45)
[2022-12-08] MEDS: FOAM DRESSING TP SCH (13:06)
[2022-12-08] MEDS: AMINO ACIDS IV SCH ×4 (20:04)
[2022-12-08] MEDS: MULTIVITAMIN IV SCH ×4 (20:04)
[2022-12-08] MEDS: [UNRECOGNIZED DRUG - OTHER] IV SCH ×4 (20:04)
[2022-12-08] MEDS: DEXTROSE IV SCH ×4 (20:04)
[2022-12-09] VITALS (27 sets, daily range): BP systolic 134–167; BP diastolic 46–97; PULSE 94–146; RESP 18–35; TEMP 97.3–98.8; O2SAT 88–99
[2022-12-09] MEDS: BLOOD GLUCOSE MONITORING 1 DEV DEV MC SCH ×4 (00:59→18:35)
[2022-12-09] MEDS: DEXTROSE 50% 50 ML SYR IVP PRN (01:01)
[2022-12-09] MEDS: HYDRAGUARD CREAM TP SCH ×2 (01:01→13:27)
[2022-12-09 05:45] LABS: EOSINOPHILS % (AUTO) 0.1 % (0.0-4.0); HEMATOCRIT 27.4 % (36-48); HEMOGLOBIN 9.3 g/dL (12.0-16.0); LYMPHOCYTES # (AUTO) 0.3 K/uL (2.5-16.5); LYMPHOCYTES % (AUTO) 4.9 % (20.5-51.1); MEAN CORPUSCULAR HEMOGLOBIN 33 pg (27-31); MEAN CORPUSCULAR HGB CONC 34 g/dL (33-37); MEAN CORPUSCULAR VOLUME 96.8 fL (80-94); MONOCYTES # (AUTO) 0.4 K/uL (0.8-1.0); MONOCYTES % (AUTO) 5.5 % (1.7-9.3); NEUTROPHILS # (AUTO) 5.9 K/uL (1.8-7.7); NEUTROPHILS % (AUTO) 89.5 % (42.2-75.2); PLATELET COUNT (AUTO) 111 K/uL (140-450); RED BLOOD CELL COUNT(AUTO) 2.83 MIL/uL (4.20-5.40); RED CELL DISTRIBUTION WIDTH 17.7 % (11.6-13.7); WHITE BLOOD COUNT (AUTO) 6.6 K/uL (4.8-10.8)
[2022-12-09 05:54] LABS: ANION GAP 3.3 (8-16); CALCIUM 8.8 mg/dL (8.5-10.1); CHLORIDE 107 mmol/L (98-107); CREATININE 0.5 mg/dL (0.6-1.3); GLUCOSE 135 mg/dL (74-106); POTASSIUM 4.1 mmol/L (3.5-5.1); SODIUM SERUM 149 mmol/L (136-145); UREA NITROGEN, BLOOD 36 mg/dL (7-18)
[2022-12-09 05:56] LABS: CARBON DIOXIDE 42.8 mmol/L (21-32)
[2022-12-09 05:59] LABS: PHOSPHORUS 2.8 mg/dL (2.5-4.9)
[2022-12-09] MEDS: PANTOPRAZOLE 40 MG INJ VIAL IVP SCH ×2 (08:31→20:24)
[2022-12-09] MEDS ORDERED: DEXTROSE 50% 50 ML SYR IVP SCH (12:10)
[2022-12-09] MEDS: FOAM DRESSING TP SCH (13:27)
[2022-12-09] MEDS: DEXTROSE 5% 1,000 ML IV SCH (13:37)
[2022-12-09] MEDS: MORPHINE SULFATE 2 MG/ML SYR IVP PRN ×2 (13:37→22:41)
[2022-12-09 17:20] LABS: BLOOD GAS BASE EXCESS 9.9 mmol/L (-2.0-2.0); BLOOD GAS PCO2 43.9 mmHg (35-45); BLOOD GAS PH 7.507 (7.35-7.45); BLOOD GAS PO2 79.4 mmHg (75-100)
[2022-12-09 17:21] LABS: BLOOD GAS O2 SAT% 95.3 % (92.0-98.5)
[2022-12-09] MEDS ORDERED: [UNRECOGNIZED DRUG - OTHER] IV SCH ×4 (20:00)
[2022-12-09] MEDS ORDERED: MULTIVITAMIN IV SCH ×4 (20:00)
[2022-12-09] MEDS ORDERED: AMINO ACIDS IV SCH ×4 (20:00)
[2022-12-09] MEDS ORDERED: DEXTROSE IV SCH ×4 (20:00)
[2022-12-10] VITALS (21 sets, daily range): BP systolic 133–168; BP diastolic 58–102; PULSE 92–127; RESP 12–41; TEMP 97.6–98.8; O2SAT 92–98
[2022-12-10] MEDS: BLOOD GLUCOSE MONITORING 1 DEV DEV MC SCH ×3 (00:19→11:51)
[2022-12-10] MEDS: HYDRAGUARD CREAM TP SCH ×2 (00:20→13:00)
[2022-12-10] MEDS: DEXTROSE 50% 50 ML SYR IVP PRN (00:20)
[2022-12-10 05:40] LABS: ANION GAP 3.9 (8-16); CALCIUM 8.5 mg/dL (8.5-10.1); CARBON DIOXIDE 38.7 mmol/L (21-32); CHLORIDE 103 mmol/L (98-107); CREATININE 0.6 mg/dL (0.6-1.3); GLUCOSE 184 mg/dL (74-106); POTASSIUM 3.6 mmol/L (3.5-5.1); SODIUM SERUM 142 mmol/L (136-145); UREA NITROGEN, BLOOD 38 mg/dL (7-18)
[2022-12-10 05:48] LABS: MAGNESIUM 1.9 mg/dL (1.8-2.4); PHOSPHORUS 2.8 mg/dL (2.5-4.9)
[2022-12-10] MEDS: DEXTROSE 5% 1,000 ML IV SCH (09:12)
[2022-12-10] MEDS: PANTOPRAZOLE 40 MG INJ VIAL IVP SCH (09:14)
[2022-12-10] MEDS: FOAM DRESSING TP SCH (13:00)
[2022-12-10] MEDS ORDERED: METOPROLOL 5 MG/5 ML VIAL IV SCH (16:37)
== END 2022-12-10 19:32 | DRG 871 ==
LOC: MED 21:39 → MTU 11-27 03:16 → MIC 11-27 14:39
PROVIDERS: ADMIT Student in an Organized Health Care Education/Training Program; ATTEND Student in an Organized Health Care Education/Training Program
PROC: 5A09557 Assistance with Respiratory Ventilation, Greater than 96 Consecutive Hours, Continuous Positive Airway Pressure (ICD-10-PCS; 2022-11-30)
PROC: 30233N1 Transfusion of Nonautologous Red Blood Cells into Peripheral Vein, Percutaneous Approach (ICD-10-PCS; principal; 2022-12-05)
PROC: 5A0935A Assistance with Respiratory Ventilation, Less than 24 Consecutive Hours, High Flow/Velocity Cannula (ICD-10-PCS; 2022-12-05)
PROC: 5A0935A Assistance with Respiratory Ventilation, Less than 24 Consecutive Hours, High Flow/Velocity Cannula (ICD-10-PCS; 2022-12-06)
PROC: 5A0935A Assistance with Respiratory Ventilation, Less than 24 Consecutive Hours, High Flow/Velocity Cannula (ICD-10-PCS; 2022-12-07)
PROC: 5A0935A Assistance with Respiratory Ventilation, Less than 24 Consecutive Hours, High Flow/Velocity Cannula (ICD-10-PCS; 2022-12-08)
DX: A41.9 Sepsis, unspecified organism (principal); I50.43 Acute on chronic combined systolic (congestive) and diastolic (congestive) heart failure; J12.82 Pneumonia due to coronavirus disease 2019; J96.01 Acute respiratory failure with hypoxia; U07.1 COVID-19; R65.21 Severe sepsis with septic shock; J15.9 Unspecified bacterial pneumonia; S22.31XA Fracture of one rib, right side, initial encounter for closed fracture; E44.0 Moderate protein-calorie malnutrition; Z68.1 Body mass index [BMI] 19.9 or less, adult; K92.2 Gastrointestinal hemorrhage, unspecified; D63.8 Anemia in other chronic diseases classified elsewhere; I48.91 Unspecified atrial fibrillation; G30.9 Alzheimer's disease, unspecified; E87.6 Hypokalemia; X58.XXXA Exposure to other specified factors, initial encounter; Z66 Do not resuscitate; F02.A0 Dementia in other diseases classified elsewhere, mild, without behavioral disturbance, psychotic disturbance, mood disturbance, and anxiety; D69.6 Thrombocytopenia, unspecified; I11.0 Hypertensive heart disease with heart failure; E78.5 Hyperlipidemia, unspecified; Z90.710 Acquired absence of both cervix and uterus; Y93.89 Activity, other specified; Y92.89 Other specified places as the place of occurrence of the external cause; Y99.8 Other external cause status
CPT/HCPCS: 36415; 36600; 71045; 80048; 80053; 80076; 81003; 82040; 82272; 82728; 82803; 82948; 83605; 83735; 83880; 84100; 84484; 85025; 85379; 85610; 85651; 85730; 86140; 86886; 86900; 86901; 86920; 87040; 87081; 87086; 92526; 94640; 94660; 96374; 96375; 99285; A9153; C9113; J0456; J0692; J0696; J1100; J1160; J1644; J1650; J1815; J1940; J2270; J2405; J3475; J3490; J7030; J7060; P9016; P9035